=== PATIENT | female | born 1995 ===

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

== ENCOUNTER 2017-01-27 12:13 | Emergency (ER) | payer OTHER ==
[2017-01-27 12:14] VITALS: BMI 29.9
[2017-01-27 12:29] VITALS: BP 108/51; PULSE 81; RESP 16; TEMP 99.2; O2SAT 97
--- NOTE | 2017-01-27 12:43 | ED PDOC ---
Arrival/HPI - General Chief Complaint: Abnormal Skin Integrity Time Seen by Provider: 01/27/17 12:39 Historian: Patient - History of Present Illness Narrative History of Present Illness (Text): 01/27/17 12:40 This 21 yo female presents to this ED c/o "cold sore" x 2 days. Patient stated she has been applying Abreva without relief of symptoms. Patient denies other complains. Time/Duration: Prior to Arrival Context: Home Past Medical History - Provider Review Nursing Documentation Reviewed: Yes - Past History Past History: No Previous - Infectious Disease Hx of Infectious Diseases: None - Tetanus Immunization Tetanus Immunization: Unknown - Cardiac Hx Cardiac Disorders: No - Pulmonary Hx Respiratory Disorders: No - Neurological Hx Neurological Disorder: No - HEENT Hx HEENT Disorder: No - Renal Hx Renal Disorder: No - Endocrine/Metabolic Hx Endocrine Disorders: No - Hematological/Oncological Hx Blood Disorders: No - Integumentary Hx Dermatological Disorder: Yes - Musculoskeletal/Rheumatological Hx Musculoskeletal Disorders: No Hx Falls: No - Gastrointestinal Hx Gastrointestinal Disorders: No - Genitourinary/Gynecological Hx Genitourinary Disorders: No - Psychiatric Hx Psychophysiologic Disorder: No Hx Substance Use: No - Surgical History Hx Appendectomy: Yes - Anesthesia Hx Anesthesia: No Hx Anesthesia Reactions: No Hx Malignant Hyperthermia: No Family/Social History - Physician Review Nursing Documentation Reviewed: Yes Family/Social History: Other (noncontributory) Smoking Status: Never Smoked Hx Alcohol Use: No Hx Substance Use: No Allergies/Home Meds Allergies/Adverse Reactions: Allergies No Known Allergies Allergy (Verified 01/27/17 12:20) Review of Systems - Review of Systems Constitutional: Normal. absent: Fatigue, Weight Change, Fevers Eyes: Normal ENT: Normal Respiratory: Normal Cardiovascular: Normal Gastrointestinal: Normal Genitourinary Female: Normal Musculoskeletal: Normal Skin: Rash (cold sore with crusting) Neurological: Normal Endocrine: Normal Hemo/Lymphatic: Normal Psychiatric: Normal Physical Exam Vital Signs Temp Pulse Resp BP Pulse Ox 01/27/17 12:21 99.2 F 81 16 108/51 L 97 Temperature: Afebrile Blood Pressure: Normal Pulse: Regular Respiratory Rate: Normal Appearance: Positive for: Well-Appearing, Non-Toxic, Comfortable Pain Distress: None Mental Status: Positive for: Alert and Oriented X 3 - Systems Exam Head: Present: Atraumatic, Normocephalic Pupils: Present: PERRL Extroacular Muscles: Present: EOMI Conjunctiva: Present: Normal Mouth: Present: Moist Mucous Membranes, Normal Tounge, Normal Teeth. No: Drooling, Trismus, Normal Lips ((+) Vesicular rash extending from left upper lip in to philtrum area, with yellowish crustin, which may represent seconday infection) Pharnyx: Present: Normal. No: ERYTHEMA, EXUDATE, TONSILS ENLARGED Upper Extremity: Present: Normal Inspection, Normal ROM Lower Extremity: Present: Normal Inspection, Normal ROM Neurological: Present: GCS=15, CN II-XII Intact, Speech Normal, Motor Func Grossly Intact, Normal Sensory Function, Normal Cerebellar Funct, Gait Normal Skin: Present: Warm, Dry, Rashes (see head), Normal Color Medical Decision Making ED Course and Treatment: 01/27/17 12:47 Re-evaluation. Patient feels better. Discussed results and plan with patient who expresses understanding. All questions answered and there is agreement with the plan to discharge home with instructions. Patient stable for discharge. Return if symptoms persist or worsen. 01/27/17 12:52 Patient refused to have urine test since she is not sexually active, and she is currently with her menses Re-evaluation Time: 12:47 Reassessment Condition: Re-examined, Improved Disposition/Present on Arrival - Present on Arrival Any Indicators Present on Arrival: No History of DVT/PE: No History of Uncontrolled Diabetes: No Urinary Catheter: No History of Decub. Ulcer: No History Surgical Site Infection Following: None - Disposition Have Diagnosis and Disposition been Completed?: Yes Diagnosis: Herpes labialis Disposition: HOME/ ROUTINE Disposition Time: 12:47 Patient Plan: Discharge Patient Problems: Current Active Problems Problem Status Onset Herpes labialis Acute Condition: GOOD Discharge Instructions (ExitCare): Oral Herpes Simplex Virus Infections (ED) Additional Instructions: Call private doctor for follow up visit and revaluation in 1-2 days. Wash hand before and after applying cream on wound. Return to emergency if rash worsen. Prescriptions: Mupirocin 2% Ointment [Bactroban Ointment] 1 appl TP TID #1 tube Valacyclovir HCl [Valtrex] 2 gm PO Q12H #4 tablet
== END 2017-01-27 13:02 | disposition home or self-care (01) ==
LOC: ED 12:13
DX: B00.1 Herpesviral vesicular dermatitis (principal)

== ENCOUNTER 2017-04-26 23:21 | Emergency (ER) | payer OTHER ==
[2017-04-26 23:39] VITALS: BMI 31.6
[2017-04-27 01:20] VITALS: RESP 18
[2017-04-27] MEDS ORDERED: Sodium Chloride 0.9% 1,000 ML IV STA (01:59)
--- NOTE | 2017-04-27 02:05 | ED PDOC ---
Arrival/HPI - General Chief Complaint: Abdominal Pain Time Seen by Provider: 04/27/17 01:22 Historian: Patient - History of Present Illness Narrative History of Present Illness (Text): 04/27/17 01:56 A 22 year old female, whose past medical history includes appendectomy, presents to the emergency department for evaluation of abdominal discomfort that began this late evening. Patient reports no associated vomiting or diarrhea with discomfort. Patient denies urinary symptoms, back pain, vaginal discharge, trauma, or any other complaints. No PMD Time/Duration: Other (late this evening) Symptom Onset: Sudden Symptom Course: Unchanged Past Medical History - Provider Review Nursing Documentation Reviewed: Yes - Past History Past History: No Previous - Infectious Disease Hx of Infectious Diseases: None - Tetanus Immunization Tetanus Immunization: Unknown - Cardiac Hx Cardiac Disorders: No - Pulmonary Hx Respiratory Disorders: No - Neurological Hx Neurological Disorder: No - HEENT Hx HEENT Disorder: No - Renal Hx Renal Disorder: No - Endocrine/Metabolic Hx Endocrine Disorders: No - Hematological/Oncological Hx Blood Disorders: No - Integumentary Hx Dermatological Disorder: Yes - Musculoskeletal/Rheumatological Hx Musculoskeletal Disorders: No Hx Falls: No - Gastrointestinal Hx Gastrointestinal Disorders: No - Genitourinary/Gynecological Hx Genitourinary Disorders: No - Psychiatric Hx Psychophysiologic Disorder: No Hx Substance Use: No - Surgical History Hx Appendectomy: Yes - Anesthesia Hx Anesthesia: No Hx Anesthesia Reactions: No Hx Malignant Hyperthermia: No Family/Social History - Physician Review Nursing Documentation Reviewed: Yes Family/Social History: No Known Family HX Smoking Status: Never Smoked Hx Alcohol Use: No Hx Substance Use: No Allergies/Home Meds Allergies/Adverse Reactions: Allergies No Known Allergies Allergy (Verified 04/27/17 01:20) Review of Systems - Physician Review All systems were reviewed & negative as marked: Yes - Review of Systems Constitutional: absent: Other (no trauma) Gastrointestinal: Abdominal Pain (abdominal discomfort). absent: Nausea, Vomiting Genitourinary Female: absent: Dysuria, Frequency, Hematuria, Urine Output Changes, Vaginal Discharge Musculoskeletal: absent: Back Pain Physical Exam Vital Signs Reviewed: Yes Vital Signs Temp Pulse Resp BP Pulse Ox 04/27/17 01:17 98.6 F 84 18 114/74 98 Temperature: Afebrile Blood Pressure: Normal Pulse: Regular Respiratory Rate: Normal Appearance: Positive for: Well-Appearing Pain Distress: None Mental Status: Positive for: Alert and Oriented X 3 - Systems Exam Head: Present: Atraumatic, Normocephalic Pupils: Present: PERRL Extroacular Muscles: Present: EOMI Conjunctiva: Present: Normal Mouth: Present: Moist Mucous Membranes Neck: Present: Normal Range of Motion Respiratory/Chest: Present: Clear to Auscultation, Good Air Exchange. No: Respiratory Distress, Accessory Muscle Use Cardiovascular: Present: Regular Rate and Rhythm, Normal S1, S2. No: Murmurs Abdomen: Present: Normal Bowel Sounds. No: Tenderness, Distention, Peritoneal Signs Back: Present: Normal Inspection Upper Extremity: Present: Normal Inspection. No: Cyanosis, Edema Lower Extremity: Present: Normal Inspection. No: Edema Neurological: Present: GCS=15, CN II-XII Intact, Speech Normal Skin: Present: Warm, Dry, Normal Color. No: Rashes Psychiatric: Present: Alert, Oriented x 3, Normal Insight, Normal Concentration Medical Decision Making ED Course and Treatment: 04/27/17 01:58 Impression: 22 year old female with abdominal discomfort. Physical exam is benign. Plan: -- Labs -- Urinalysis -- IV Fluids -- Reassess and disposition Prior Visits: Notes and results from previous visits were reviewed. Patient was last seen in the emergency department on 01/27/2017 for "cold sore." Patient was d/c home. Progress Notes: - Lab Interpretations Lab Results: 04/27/17 02:09 04/27/17 02:09 Lab Results 04/27/17 02:09: WBC 10.1 D, RBC 4.81, Hgb 12.6, Hct 39.0, MCV 81.1, MCH 26.2, MCHC 32.3, RDW 16.2 H, Plt Count 412, MPV 10.1 04/27/17 02:09: Sodium 141, Potassium 4.1, Chloride 107, Carbon Dioxide 22, Anion Gap 17, BUN 12, Creatinine 0.7, Est GFR ( Amer) > 60, Est GFR (Non- Af Amer) > 60, Random Glucose 87, Calcium 9.6, Total Bilirubin 0.3, AST 37 H, ALT 42, Alkaline Phosphatase 91, Total Protein 8.0, Albumin 4.4, Globulin 3.6, Albumin/Globulin Ratio 1.2, Lipase 66 04/27/17 02:01: Urine Color Straw, Urine Appearance Clear, Urine pH 7.5, Ur Specific [place] 1.010, Urine Protein Negative, Urine Glucose (UA) Negative, Urine Ketones Negative, Urine Blood Negative, Urine Nitrate Negative, Urine Bilirubin Negative, Urine Urobilinogen 0.2, Ur Leukocyte Esterase Negative, Urine HCG, Qual Negative I have reviewed the lab results: Yes - RAD Interpretation Radiology Orders: 04/27/17 06:19 ABD & PELVIS IV CONTRAST ONLY [CT] Stat - Medication Orders Current Medication Orders: Discontinued Medications Sodium Chloride (Sodium Chloride 0.9%) 1,000 mls @ 999 mls/hr IV .Q1H1M STA Stop: 04/27/17 02:59 Last Admin: 04/27/17 02:12 Dose: 999 mls/hr eMAR Start Stop Document 04/27/17 02:12 AD (Rec: 04/27/17 02:12 AD [id number]) Intravenous Solution Start Date 04/27/17 Start Time 02:12 Ketorolac Tromethamine (Toradol) 30 mg IVP ONCE ONE Stop: 04/27/17 05:22 Last Admin: 04/27/17 05:30 Dose: 30 mg MAR Pain Assessment Document 04/27/17 05:30 AD (Rec: 04/27/17 05:55 AD [id number]) Pain Reassessment Is this a pain reassessment? No Presence of Pain Presence of Pain Yes Pain Scale Used Pain Scale Used Numeric Description Intensity of Pain at present 8 Pain Behavior Facial Grimacing IVP Administration Document 04/27/17 05:30 AD (Rec: 04/27/17 05:55 AD [id number]) Charges for Administration # of IVP Administrations 1 Morphine Sulfate (Morphine) 4 mg IVP STAT STA Stop: 04/27/17 06:20 Ondansetron HCl (Zofran Inj) 4 mg IVP ONCE ONE Stop: 04/27/17 06:20 - Transfer of Care Patient signed out to :Sarah Khan Pending Radiology Studies:: CT Abdomen/Pelvis/reassess/final disposition - Scribe Statement The provider has reviewed the documentation as recorded by the Jose Stanley Provider Scribe Attestation: All medical record entries made by the Scribe were at my direction and personally dictated by me. I have reviewed the chart and agree that the record accurately reflects my personal performance of the history, physical exam, medical decision making, and the department course for this patient. I have also personally directed, reviewed, and agree with the discharge instructions and disposition. Disposition/Present on Arrival - Present on Arrival Any Indicators Present on Arrival: No History of DVT/PE: No History of Uncontrolled Diabetes: No Urinary Catheter: No History of Decub. Ulcer: No History Surgical Site Infection Following: None - Disposition Have Diagnosis and Disposition been Completed?: No Diagnosis: Abdominal pain Disposition Time: 07:00 Condition: STABLE Forms: [employer] (Persian)
[2017-04-27 02:42] LABS: PH,URINE 7.5 (4.7-8.0); URINE BILIRUBIN NEGATIVE (NEGATIVE); URINE BLOOD NEGATIVE (NEGATIVE); URINE GLUCOSE (UA) NEGATIVE (NEGATIVE); URINE LEUKOCYTE ESTERASE NEGATIVE Leu/uL (NEGATIVE); URINE NITRATE NEGATIVE (NEGATIVE); URINE PROTEIN NEGATIVE mg/dL (<30 mg/dL); URINE UROBILINOGEN 0.2 E.U./dL (<1 E.U./dL)
[2017-04-27 02:43] LABS: HEMOGLOBIN 12.6 g/dL (12.0-16.0); MEAN CELL VOLUME 81.1 fl (80.0-105.0); MEAN CORPUSCULAR HEMOGLOBIN 26.2 pg (25.0-35.0); MEAN CORPUSCULAR HGB CONC 32.3 g/dl (31.0-37.0); MEAN PLATELET VOLUME 10.1 fl (7.0-11.0); RBC 4.81 10^6/uL (3.5-6.1); RED CELL DISTRIBUTION WIDTH 16.2 % (11.5-14.5); WHITE BLOOD COUNT 10.1 10^3/ul (4.5-11.0)
[2017-04-27 02:45] LABS: URINE APPEARANCE CLEAR (CLEAR); URINE COLOR STRAW (YELLOW)
[2017-04-27 02:46] LABS: ALB/GLOB RATIO 1.2 (1.1-1.8); ALBUMIN 4.4 g/dL (3.0-4.8); ALT/SGPT 42 U/L (7-56); AST/SGOT 37 U/L (14-36); BLOOD UREA NITROGEN 12 mg/dL (7-21); CALCIUM 9.6 mg/dL (8.4-10.5); GFR AFRICAN-AMERICAN > 60; GFR NON-AFRICAN AMERICAN > 60; LIPASE 66 U/L (23-300)
[2017-04-27 02:46] LABS: HCG,QUALITATIVE URINE NEGATIVE (NEGATIVE)
[2017-04-27] MEDS ORDERED: Morphine 4 mg/ml ISec IVP STA (06:19)
[2017-04-27] MEDS ORDERED: Iohexol 350 MG/100 ML VIAL ONE (06:35)
--- NOTE | 2017-04-27 07:29 | ED PDOC ---
Physical Exam Vital Signs Reviewed: Yes Vital Signs Temp Pulse Resp BP Pulse Ox 04/27/17 07:38 98 F 76 18 102/56 L 99 04/27/17 01:17 98.6 F 84 18 114/74 98 Temperature: Afebrile Blood Pressure: Normal Pulse: Regular Respiratory Rate: Normal Appearance: Positive for: Well-Appearing, Non-Toxic, Comfortable Pain Distress: None Mental Status: Positive for: Alert and Oriented X 3 Medical Decision Making ED Course and Treatment: 04/27/17 07:28 Case signed out to me by Dr. Ulrich. Pending CT abd/pelvis, reassessment and final disposition. CT Abdomen and Pelvis With Intravenous Contrast FINDINGS: Lower thorax: No acute findings. ABDOMEN: Liver: Dome of the liver is not entirely visualized Gallbladder and bile ducts: Unremarkable. No calcified stones. No ductal dilation. Pancreas: Unremarkable. No mass. No ductal dilation. Spleen: Unremarkable. No splenomegaly. Adrenals: Unremarkable. No mass. Kidneys and ureters: Unremarkable. No solid mass. No hydronephrosis. Stomach and bowel: Small bowel wall thickening may reflect a nonspecific enteritis, either infectious or inflammatory, in the correct clinical setting. No obstruction. Appendix: The patient is status post appendectomy. PELVIS: Bladder: Unremarkable. No mass. Reproductive: Bilateral ovarian follicular cysts ABDOMEN and PELVIS: Intraperitoneal space: Unremarkable. No free air. No significant fluid collection. Bones/joints: No acute fracture. No dislocation. Soft tissues: Unremarkable. Vasculature: Unremarkable. No abdominal aortic aneurysm. Lymph nodes: Unremarkable. No enlarged lymph nodes. IMPRESSION: Small bowel wall thickening may reflect a nonspecific enteritis, either infectious or inflammatory, in the correct clinical setting. Dictated and Authenticated by: Jamel Gaitan MD 04/27/2017 7:20 AM Eastern Time ([place] & [place]) 04/27/17 07:37 On reevaluation, abdomen is soft, patient feels better and is in no acute distress. Will give patient IV antibiotics. I have discussed the results and plan with the patient, who expresses understanding. Patient in agreement with plan to be discharged home. Patient is stable for discharge. Patient was instructed to follow up with physician or return if symptoms worsen or new concerning symptoms arise. - Lab Interpretations Lab Results: 04/27/17 02:09 04/27/17 02:09 Lab Results 04/27/17 02:09: WBC 10.1 D, RBC 4.81, Hgb 12.6, Hct 39.0, MCV 81.1, MCH 26.2, MCHC 32.3, RDW 16.2 H, Plt Count 412, MPV 10.1 04/27/17 02:09: Sodium 141, Potassium 4.1, Chloride 107, Carbon Dioxide 22, Anion Gap 17, BUN 12, Creatinine 0.7, Est GFR ( Amer) > 60, Est GFR (Non- Af Amer) > 60, Random Glucose 87, Calcium 9.6, Total Bilirubin 0.3, AST 37 H, ALT 42, Alkaline Phosphatase 91, Total Protein 8.0, Albumin 4.4, Globulin 3.6, Albumin/Globulin Ratio 1.2, Lipase 66 04/27/17 02:01: Urine Color Straw, Urine Appearance Clear, Urine pH 7.5, Ur Specific [place] 1.010, Urine Protein Negative, Urine Glucose (UA) Negative, Urine Ketones Negative, Urine Blood Negative, Urine Nitrate Negative, Urine Bilirubin Negative, Urine Urobilinogen 0.2, Ur Leukocyte Esterase Negative, Urine HCG, Qual Negative I have reviewed the lab results: Yes - RAD Interpretation Radiology Orders: 04/27/17 06:19 ABD & PELVIS IV CONTRAST ONLY [CT] Stat - Medication Orders Current Medication Orders: Metronidazole (Flagyl) 500 mg in 100 mls @ 100 mls/hr IVPB STAT STA PRN Reason: Protocol Stop: 04/27/17 08:30 Levofloxacin/Dextrose (Levaquin 750mg) 750 mg in 150 mls @ 100 mls/hr IVPB STAT STA PRN Reason: Protocol Stop: 04/27/17 09:00 Discontinued Medications Sodium Chloride (Sodium Chloride 0.9%) 1,000 mls @ 999 mls/hr IV .Q1H1M STA Stop: 04/27/17 02:59 Last Admin: 04/27/17 02:12 Dose: 999 mls/hr eMAR Start Stop Document 04/27/17 02:12 AD (Rec: 04/27/17 02:12 AD [id number]) Intravenous Solution Start Date 04/27/17 Start Time 02:12 Ketorolac Tromethamine (Toradol) 30 mg IVP ONCE ONE Stop: 04/27/17 05:22 Last Admin: 04/27/17 05:30 Dose: 30 mg MAR Pain Assessment Document 04/27/17 05:30 AD (Rec: 04/27/17 05:55 AD [id number]) Pain Reassessment Is this a pain reassessment? No Presence of Pain Presence of Pain Yes Pain Scale Used Pain Scale Used Numeric Description Intensity of Pain at present 8 Pain Behavior Facial Grimacing IVP Administration Document 04/27/17 05:30 AD (Rec: 04/27/17 05:55 AD [id number]) Charges for Administration # of IVP Administrations 1 Morphine Sulfate (Morphine) 4 mg IVP STAT STA Stop: 04/27/17 06:20 Last Admin: 04/27/17 06:30 Dose: 4 mg MAR Pain Assessment Document 04/27/17 06:30 AD (Rec: 04/27/17 07:01 [id number] Pain Reassessment Is this a pain reassessment? No Presence of Pain Presence of Pain Yes Pain Scale Used Pain Scale Used Numeric Location Pain Location Body Site Abdomen Description Intensity of Pain at present 7 Pain Behavior Facial Grimacing IVP Administration Document 04/27/17 06:30 AD (Rec: 04/27/17 07:01 AD [id number]) Charges for Administration # of IVP Administrations 1 Ondansetron HCl (Zofran Inj) 4 mg IVP ONCE ONE Stop: 04/27/17 06:20 Last Admin: 04/27/17 06:30 Dose: 4 mg IVP Administration Document 04/27/17 06:30 AD (Rec: 04/27/17 07:02 [id number] Charges for Administration # of IVP Administrations 1 - PA / SECURITY CHECKER / Resident Statement MD/DO has reviewed & agrees with the documentation as recorded. - Scribe Statement The provider has reviewed the documentation as recorded by the Jose Asif Provider Scribe Attestation: All medical record entries made by the Jose were at my direction and personally dictated by me. I have reviewed the chart and agree that the record accurately reflects my personal performance of the history, physical exam, medical decision making, and the department course for this patient. I have also personally directed, reviewed, and agree with the discharge instructions and disposition. Disposition/Present on Arrival - Present on Arrival Any Indicators Present on Arrival: No History of DVT/PE: No History of Uncontrolled Diabetes: No Urinary Catheter: No History of Decub. Ulcer: No History Surgical Site Infection Following: None - Disposition Have Diagnosis and Disposition been Completed?: Yes Diagnosis: Abdominal pain, Colitis Disposition: HOME/ ROUTINE Disposition Time: 07:49 Patient Plan: Discharge Patient Problems: Current Active Problems Problem Status Onset Abdominal pain Acute Colitis Acute Condition: GOOD Discharge Instructions (ExitCare): Diarrhea in Adolescents and Adults, Nausea and Vomiting, Adult (DC) Additional Instructions: Rain- Sorry this is happening for you right now. Clear Liquids or a bland diet should be ok. Levaquin and Flagyl are the antibiotics. You have to take both for ten days. Eat lots of yogurt if possible or take a probiotic. See your doctor in a few days. Return to us if worse or new symptoms occur. Hope you feel better soon- Best-Dr. Brown Khan Prescriptions: Ibuprofen [Motrin Tab] 800 mg PO TID #30 tab levoFLOXacin [Levaquin] 750 mg PO DAILY #10 tab Metronidazole [Flagyl] 500 mg PO TID #30 tab Ondansetron ODT [Zofran ODT] 8 mg PO TID #30 odt oxyCODONE/Acetaminophen [Percocet 5/325 mg Tab] 1 tab PO QID #20 tab Forms: [employer] (Japanese)
[2017-04-27] MEDS ORDERED: metroNIDAZOLE IV 500 mg/100 ml 500 MG/100 ML BAG IVPB STA (07:31)
[2017-04-27] MEDS ORDERED: levoFLOXacin 750 mg in D5W 750 MG/150 ML BAG IVPB STA (07:31)
[2017-04-27 07:39] VITALS: TEMP 98
--- NOTE | 2017-04-27 10:03 | CT ---
PROCEDURE: CT Abdomen and Pelvis with contrast HISTORY: lower abdominal pain COMPARISON: None. TECHNIQUE: Contrast dose: 100 mL Omnipaque 350. Axial and reformatted coronal and sagittal CT images of the abdomen and pelvis were obtained after IV contrast administration. Radiation dose: Total exam DLP = 912.85 mGy-cm. This CT exam was performed using one or more of the following dose reduction techniques: Automated exposure control, adjustment of the mA and/or kV according to patient size, and/or use of iterative reconstruction technique. FINDINGS: LOWER THORAX: No evidence of acute pathology at the lung bases. LIVER: Unremarkable. No gross lesion or ductal dilatation. GALLBLADDER AND BILE DUCTS: Unremarkable. PANCREAS: Unremarkable. No gross lesion or ductal dilatation. SPLEEN: Unremarkable. ADRENALS: Unremarkable. No mass. KIDNEYS AND URETERS: Unremarkable. No hydronephrosis. No solid mass. VASCULATURE: Unremarkable. No aortic aneurysm. BOWEL: There is suspicious for mild diffuse small bowel wall thickening which could represent enteritis. No evidence of bowel obstruction. No evidence of colitis. APPENDIX: No evidence of appendicitis. The appendix is not visualized. PERITONEUM: Unremarkable. No free fluid. No free air. LYMPH NODES: Slightly prominent mesenteric lymph nodes are noted in the right lower abdomen may represent mesenteric adenitis in appropriate clinical setting. No evidence of retroperitoneal lymphadenopathy P BLADDER: Unremarkable. REPRODUCTIVE: Unremarkable. BONES: No acute fracture. OTHER FINDINGS: None. IMPRESSION: Diffuse mild small bowel wall thickening suspicious for enteritis. Prominent lymph nodes at the right lower abdomen adjacent to the cecum and ascending colon may represent mesenteric adenitis in the appropriate clinical setting. Preliminary report was submitted by [facility].
[2017-04-27 10:44] VITALS: PULSE 80; O2SAT 98
[2017-04-27 10:53] VITALS: BP 105/66
== END 2017-04-27 10:54 | disposition home or self-care (01) ==
LOC: ED 23:21
DX: K52.9 Noninfective gastroenteritis and colitis, unspecified (principal)
CPT/HCPCS: 74177; 80053; 81003; 83690; 84703; 85027; 96365; 96367; 96375; 99285; J1885; J2270; J2405; J7040; Q9967

== ENCOUNTER 2017-06-10 15:18 | Emergency (ER) | payer OTHER ==
[2017-06-10 15:28] VITALS: RESP 18; TEMP 98; O2SAT 97; BMI 31.8
--- NOTE | 2017-06-10 15:28 | ED PDOC ---
Arrival/HPI - General Time Seen by Provider: 06/10/17 15:27 Historian: Patient - History of Present Illness Narrative History of Present Illness (Text): 06/10/17 15:27 22 year old female, pmh including appendicitis and uti, nkda, complaining of rt. hand 5th knuckle pain s/p crushing by the balcony door x 2 hours accidentally. Aching pain, aggravated by touching, no numbness or tingling, no rash, no dizziness, no palpitation, no change in vision, no other medical or psychological complaints. Past Medical History - Provider Review Nursing Documentation Reviewed: Yes - Past History Past History: No Previous - Infectious Disease Hx of Infectious Diseases: None - Tetanus Immunization Tetanus Immunization: Unknown - Cardiac Hx Cardiac Disorders: No - Pulmonary Hx Respiratory Disorders: No - Neurological Hx Neurological Disorder: No - HEENT Hx HEENT Disorder: No - Renal Hx Renal Disorder: No - Endocrine/Metabolic Hx Endocrine Disorders: No - Hematological/Oncological Hx Blood Disorders: No - Integumentary Hx Dermatological Disorder: Yes - Musculoskeletal/Rheumatological Hx Musculoskeletal Disorders: No Hx Falls: No - Gastrointestinal Hx Gastrointestinal Disorders: No - Genitourinary/Gynecological Hx Genitourinary Disorders: No - Psychiatric Hx Psychophysiologic Disorder: No Hx Substance Use: No - Surgical History Hx Appendectomy: Yes - Anesthesia Hx Anesthesia: No Hx Anesthesia Reactions: No Hx Malignant Hyperthermia: No Family/Social History - Physician Review Nursing Documentation Reviewed: Yes Family/Social History: Unknown Family HX Smoking Status: Never Smoked Hx Alcohol Use: No Hx Substance Use: No Allergies/Home Meds Allergies/Adverse Reactions: Allergies No Known Allergies Allergy (Verified 06/10/17 15:39) Review of Systems - Review of Systems Constitutional: absent: Fatigue, Fevers Eyes: absent: Vision Changes ENT: absent: Hearing Changes Respiratory: absent: SOB, Cough Cardiovascular: absent: Chest Pain Gastrointestinal: absent: Abdominal Pain, Nausea, Vomiting Musculoskeletal: Arthralgias, Myalgias. absent: Back Pain Skin: absent: Rash, Pruritis Neurological: absent: Headache, Dizziness Psychiatric: absent: Anxiety, Depression, Suicidal Ideation Physical Exam Vital Signs Reviewed: Yes Vital Signs Temp Pulse Resp BP Pulse Ox 06/10/17 16:30 79 18 118/79 97 06/10/17 15:26 98.0 F 83 18 121/82 97 Temperature: Afebrile Blood Pressure: Normal Pulse: Regular Respiratory Rate: Normal Appearance: Positive for: Well-Appearing, Non-Toxic, Comfortable Pain Distress: Mild Mental Status: Positive for: Alert and Oriented X 3 - Systems Exam Head: Present: Atraumatic, Normocephalic Pupils: Present: PERRL Extroacular Muscles: Present: EOMI Conjunctiva: Present: Normal Mouth: Present: Moist Mucous Membranes Neck: Present: Normal Range of Motion Respiratory/Chest: Present: Clear to Auscultation, Good Air Exchange. No: Respiratory Distress, Accessory Muscle Use Cardiovascular: Present: Regular Rate and Rhythm, Normal S1, S2. No: Murmurs Abdomen: No: Tenderness, Distention, Peritoneal Signs Back: Present: Normal Inspection Upper Extremity: Present: Normal Inspection, Other (Rt. hand: +ttp over the dorsum 5th MCPJ region with mild ecchymosis, skin intact, no laceration or abrasion, FROM without limitation, sensation intact, motor 5/5, +radial pulse, capillary refill< 2seconds, no scaphoid tenderness, no skin tightening and no signs of compartment syndrome. ). No: Cyanosis, Edema Lower Extremity: Present: Normal Inspection. No: Edema Neurological: Present: GCS=15, CN II-XII Intact, Speech Normal, Motor Func Grossly Intact, Gait Normal, Memory Normal Skin: Present: Warm, Dry, Normal Color. No: Rashes Psychiatric: Present: Alert, Oriented x 3, Normal Insight, Normal Concentration Medical Decision Making ED Course and Treatment: 06/10/17 15:38 -tylenol -rt. hand xray -observe and reassess 06/10/17 16:46 -urine hcg is negative -xray show no acute findings -Discharge home with naproxen, ice pack for 2 days then heating, follow up with your own pmd and orthopedic within 2 days, return to the ER for any new or worsening signs or symptoms. - RAD Interpretation Radiology Orders: 06/10/17 15:31 HAND RIGHT 3 VIEWS [RAD] Stat PROCEDURE: Right Hand Radiographs. HISTORY: rt. hand dorsum 5th mcpj pain and swelling COMPARISON: None. FINDINGS: BONES: Normal. No fracture. JOINTS: Normal. No osteoarthritic changes. SOFT TISSUES: Normal. OTHER FINDINGS: None. IMPRESSION: Normal right hand radiographs. Information Technology Security Analyst: Radiologist - PA / FRANCHISE BROKER / Resident Statement MD/DO has reviewed & agrees with the documentation as recorded. Disposition/Present on Arrival - Present on Arrival Any Indicators Present on Arrival: No History of DVT/PE: No History of Uncontrolled Diabetes: No Urinary Catheter: No History of Decub. Ulcer: No History Surgical Site Infection Following: None - Disposition Have Diagnosis and Disposition been Completed?: Yes Diagnosis: Hand injury, Hand contusion Disposition: HOME/ ROUTINE Disposition Time: 15:39 Patient Plan: Discharge Condition: GOOD Additional Instructions: -Discharge home with naproxen, ice pack for 2 days then heating, follow up with your own pmd and orthopedic within 2 days, return to the ER for any new or worsening signs or symptoms. Prescriptions: Naproxen 500 mg PO BID PRN #20 tab PRN Reason: other Referrals: Shaik Martinez MD [Primary Care Provider] - Follow up with primary Prateek Miller MD [Staff Provider] - Follow up with primary Forms: [employer] (Wolof)
[2017-06-10 16:53] VITALS: BP 118/79; PULSE 79
--- NOTE | 2017-06-11 08:57 | RAD ---
PROCEDURE: Right Hand Radiographs. HISTORY: rt. hand dorsum 5th mcpj pain and swelling COMPARISON: None. FINDINGS: BONES: Normal. No fracture. JOINTS: Normal. No osteoarthritic changes. SOFT TISSUES: Normal. OTHER FINDINGS: None. IMPRESSION: Normal right hand radiographs.
== END 2017-06-10 16:56 | disposition home or self-care (01) ==
LOC: ED 15:18
DX: S60.221A Contusion of right hand, initial encounter (principal); W23.0XXA Caught, crushed, jammed, or pinched between moving objects, initial encounter; Y92.89 Other specified places as the place of occurrence of the external cause

== ENCOUNTER 2017-08-04 01:06 | Emergency (ER) | payer SELFPAY ==
[2017-08-04 01:06] VITALS: BMI 31.8
--- NOTE | 2017-08-04 02:17 | ED PDOC ---
Arrival/HPI <Brown Khan - Last Filed: 08/04/17 03:35> - General Historian: Patient - History of Present Illness Time/Duration: Prior to Arrival Symptom Onset: Gradual Symptom Course: Unchanged Activities at Onset: Rest Context: Home <Armaan Soto - Last Filed: 08/04/17 03:39> - General Chief Complaint: Cough, Cold, Congestion Time Seen by Provider: 08/04/17 01:14 - History of Present Illness Narrative History of Present Illness (Text): 08/04/17 03:18 Patient is a 22 F who presents with complaints of headache, chest congestion, sore throat, and productive cough with white sputum. Patient states these symptoms began when she woke up yesterday morning. She denies fevers,chills, nausea, vomiting, abdominal pain. (Armaan Soto) Past Medical History - Provider Review Nursing Documentation Reviewed: Yes - Past History Past History: No Previous - Infectious Disease Hx of Infectious Diseases: None - Tetanus Immunization Tetanus Immunization: Unknown - Reproductive Menopause: No - Cardiac Hx Cardiac Disorders: No - Pulmonary Hx Respiratory Disorders: No - Neurological Hx Neurological Disorder: No - HEENT Hx HEENT Disorder: No - Renal Hx Renal Disorder: No - Endocrine/Metabolic Hx Endocrine Disorders: No - Hematological/Oncological Hx Blood Disorders: No - Integumentary Hx Dermatological Disorder: Yes - Musculoskeletal/Rheumatological Hx Musculoskeletal Disorders: No Hx Falls: No - Gastrointestinal Hx Gastrointestinal Disorders: No - Genitourinary/Gynecological Hx Genitourinary Disorders: No - Psychiatric Hx Psychophysiologic Disorder: No Hx Substance Use: No - Surgical History Hx Appendectomy: Yes - Anesthesia Hx Anesthesia: No Hx Anesthesia Reactions: No Hx Malignant Hyperthermia: No <Armaan Soto - Last Filed: 08/04/17 03:39> Family/Social History - Physician Review Nursing Documentation Reviewed: Yes Family/Social History: Other (non-contributory) Smoking Status: Never Smoked Hx Alcohol Use: No Hx Substance Use: No <Armaan Soto - Last Filed: 08/04/17 03:39> Allergies/Home Meds <Brown Khan - Last Filed: 08/04/17 03:35> <Armaan Soto - Last Filed: 08/04/17 03:39> Allergies/Adverse Reactions: Allergies No Known Allergies Allergy (Verified 06/10/17 15:39) Review of Systems - Physician Review All systems were reviewed & negative as marked: Yes - Review of Systems Constitutional: Normal. absent: Fevers Eyes: Normal ENT: Normal Respiratory: Cough, Sputum. absent: SOB Cardiovascular: Normal. absent: Chest Pain Gastrointestinal: Normal. absent: Abdominal Pain, Diarrhea, Nausea, Vomiting Genitourinary Female: Normal Musculoskeletal: Normal Skin: Normal Neurological: Headache Endocrine: Normal Hemo/Lymphatic: Normal Psychiatric: Normal <Armaan Soto - Last Filed: 08/04/17 03:39> Physical Exam Vital Signs Reviewed: Yes Temperature: Afebrile Blood Pressure: Normal Pulse: Regular Respiratory Rate: Normal Appearance: Positive for: Well-Appearing, Non-Toxic, Comfortable Pain Distress: None Mental Status: Positive for: Alert and Oriented X 3 - Systems Exam Head: Present: Atraumatic, Normocephalic Pupils: Present: PERRL Extroacular Muscles: Present: EOMI Conjunctiva: Present: Normal Mouth: Present: Moist Mucous Membranes Neck: Present: Normal Range of Motion Respiratory/Chest: Present: Clear to Auscultation. No: Wheezes, Rhonchi Cardiovascular: Present: Regular Rate and Rhythm, Normal S1, S2. No: Murmurs Abdomen: Present: Normal Bowel Sounds. No: Tenderness Upper Extremity: Present: Normal Inspection. No: Edema Lower Extremity: Present: Normal Inspection Neurological: Present: GCS=15, CN II-XII Intact, Speech Normal Skin: Present: Warm, Normal Color Psychiatric: Present: Alert, Oriented x 3, Normal Insight <Armaan Soto - Last Filed: 08/04/17 03:39> Vital Signs Temp Pulse Resp BP Pulse Ox 08/04/17 02:55 99.0 F 88 18 132/76 100 08/04/17 01:19 99.8 F H 101 H 20 133/56 L 99 Medical Decision Making <Brown Khan - Last Filed: 08/04/17 03:35> Reassessment Condition: Re-examined, Improved <Armaan Soto - Last Filed: 08/04/17 03:39> ED Course and Treatment: Patient Seen With Resident: In agreement with resident note which contains more details about the patient. Patient was seen and evaluated with resident. Came up with plan and treatment together. 22 year old female presents complaining of chest congestion, sore throat, cough with white sputum, and headache that began yesterday. Plan: -- Amoxil -- Motrin (Brown Khan) 08/04/17 03:15 Patient has pharyngitis, will discharge patient with amoxicillin and motrin for headache. (Armaan Soto) - Medication Orders Current Medication Orders: Discontinued Medications Amoxicillin (Amoxil 250 Mg Cap) 250 mg PO STAT STA PRN Reason: Protocol Stop: 08/04/17 02:12 Last Admin: 08/04/17 02:23 Dose: 250 mg Ibuprofen (Motrin Tab) 600 mg PO STAT STA Stop: 08/04/17 02:12 Last Admin: 08/04/17 02:22 Dose: 600 mg - Scribe Statement The provider has reviewed the documentation as recorded by the Scribe <Brown Khan - Last Filed: 08/04/17 03:35> <Armaan Soto - Last Filed: 08/04/17 03:39> - Scribe Statement Wisam Wynne Provider Scribe Attestation: All medical record entries made by the Scribe were at my direction and personally dictated by me. I have reviewed the chart and agree that the record accurately reflects my personal performance of the history, physical exam, medical decision making, and the department course for this patient. I have also personally directed, reviewed, and agree with the discharge instructions and disposition. (Brown Khan) Disposition/Present on Arrival <Brown Khan - Last Filed: 08/04/17 03:35> - Present on Arrival Any Indicators Present on Arrival: No History of DVT/PE: No History of Uncontrolled Diabetes: No Urinary Catheter: No History of Decub. Ulcer: No History Surgical Site Infection Following: None - Disposition Have Diagnosis and Disposition been Completed?: Yes Disposition Time: 02:46 Patient Plan: Discharge <Armaan Soto - Last Filed: 08/04/17 03:39> - Disposition Diagnosis: Pharyngitis Disposition: HOME/ ROUTINE Condition: GOOD Discharge Instructions (ExitCare): Bacterial Upper Respiratory Infection, Adult (DC), Viral Pharyngitis (DC) Additional Instructions: Ms. Monaco, thank you for letting us take care of you today. You were treated for your pharyngitis. The emergency medical care you received today was directed at your acute symptoms. If you were prescribed any medication, please fill it and take as directed. It may take several days for your symptoms to resolve. Return to the Emergency Department if your symptoms worsen, do not improve, or if you have any other problems. Please contact your doctor or call one of the physicians/clinics you have been referred to that are listed on the Patient Visit Information form that is included in your discharge packet. Bring any paperwork you were given at discharge with you along with any medications you are taking to your follow up visit. Our treatment cannot replace ongoing medical care by a primary care provider (PCP) outside of the emergency department. Thank you for allowing the [facility] team to be part of your care today. If you had an X-Ray or CT scan: A Radiologist will review the ED reading if any change in treatment is needed we will contact you. If you had a blood, urine, or wound culture: It will take several days for the results, if any change in treatment is needed we will contact you. If you had an STI test: It will take 48 hours for the results. Please call after 1 week if you have not heard back. Prescriptions: Amoxicillin [Amoxil 500 mg Cap] 500 mg PO BID #20 cap Ibuprofen [Motrin] 600 mg PO Q6H #20 tab Forms: [employer] (Lithuanian)
[2017-08-04 03:00] VITALS: BP 132/76; PULSE 88; RESP 18; TEMP 99; O2SAT 100
--- NOTE | 2017-08-04 23:45 | CARD ---
APPROVED REPORT EKG Measurement Heart [id number] <Conclusion> Normal sinus rhythm Biatrial enlargement Abnormal ECG
== END 2017-08-04 02:55 | disposition home or self-care (01) ==
LOC: ED 01:06
DX: J02.9 Acute pharyngitis, unspecified (principal)

== ENCOUNTER 2017-08-05 15:01 | Emergency (ER) | payer OTHER ==
[2017-08-05 15:02] VITALS: BMI 31.8
[2017-08-05 15:17] VITALS: TEMP 99.6; O2SAT 97
--- NOTE | 2017-08-05 15:43 | ED PDOC ---
Arrival/HPI - General Chief Complaint: ENT Problem Time Seen by Provider: 08/05/17 15:36 Historian: Patient - History of Present Illness Narrative History of Present Illness (Text): 08/05/17 15:43 22 y/o female, nkda, c/o throat pain x 3 days with no fall or trauma. Aching pain, aggravated by swallowing, no coughing, no fever or chills, no night sweat , no numbness or tingling, no difficulty swallowing, no chest pain or shortness of breath. Past Medical History - Provider Review Nursing Documentation Reviewed: Yes - Past History Past History: No Previous - Infectious Disease Hx of Infectious Diseases: None - Tetanus Immunization Tetanus Immunization: Unknown - Cardiac Hx Cardiac Disorders: No - Pulmonary Hx Respiratory Disorders: No - Neurological Hx Neurological Disorder: No - HEENT Hx HEENT Disorder: No - Renal Hx Renal Disorder: No - Endocrine/Metabolic Hx Endocrine Disorders: No - Hematological/Oncological Hx Blood Disorders: No - Integumentary Hx Dermatological Disorder: Yes - Musculoskeletal/Rheumatological Hx Musculoskeletal Disorders: No Hx Falls: No - Gastrointestinal Hx Gastrointestinal Disorders: No - Genitourinary/Gynecological Hx Genitourinary Disorders: No - Psychiatric Hx Psychophysiologic Disorder: No Hx Substance Use: No - Surgical History Hx Appendectomy: Yes - Anesthesia Hx Anesthesia: No Hx Anesthesia Reactions: No Hx Malignant Hyperthermia: No Family/Social History - Physician Review Nursing Documentation Reviewed: Yes Family/Social History: Unknown Family HX Smoking Status: Never Smoked Hx Alcohol Use: No Hx Substance Use: No Allergies/Home Meds Allergies/Adverse Reactions: Allergies No Known Allergies Allergy (Verified 08/05/17 15:05) Review of Systems - Review of Systems Constitutional: Fevers. absent: Fatigue Eyes: absent: Vision Changes ENT: Sore Throat. absent: Hearing Changes, Rhinorrhea Respiratory: absent: SOB, Cough, Sputum Cardiovascular: absent: Chest Pain Gastrointestinal: absent: Abdominal Pain, Nausea, Vomiting Musculoskeletal: absent: Arthralgias, Back Pain Skin: absent: Rash, Pruritis Neurological: absent: Headache, Dizziness Psychiatric: absent: Anxiety, Depression, Suicidal Ideation Physical Exam Vital Signs Reviewed: Yes Vital Signs Temp Pulse Resp BP Pulse Ox 08/05/17 15:05 99.6 F 117 H 17 118/76 97 Temperature: Afebrile Blood Pressure: Normal Pulse: Regular Respiratory Rate: Normal Appearance: Positive for: Well-Appearing, Non-Toxic, Comfortable Pain Distress: Mild Mental Status: Positive for: Alert and Oriented X 3 - Systems Exam Head: Present: Atraumatic, Normocephalic Pupils: Present: PERRL Extroacular Muscles: Present: EOMI Conjunctiva: Present: Normal Ears: Present: NORMAL TM, Normal Canal. No: Erythema Mouth: Present: Moist Mucous Membranes Pharnyx: Present: ERYTHEMA. No: EXUDATE, TONSILS ENLARGED, Peritonsilar Swelling, Uvular Deviation, Muffled/Hoarse Voice, Soft Palate/Uvular Edema Nose (External): Present: Atraumatic. No: Abrasion, Contusion, Laceration Nose (Internal): Present: Normal Inspection, No Active Bleeding. No: Rhinorrhea , Septal Hematoma, Epistaxis Neck: Present: Normal Range of Motion, Lymphadenopathy (+lt. anterior cervical) . No: Meningeal Signs, MIDLINE TENDERNESS, Paraspinal Tenderness, Trachea Midline Respiratory/Chest: Present: Clear to Auscultation, Good Air Exchange. No: Respiratory Distress, Accessory Muscle Use, Wheezes, Decreased Breath Sounds, Retracting, Rhonchi, Tachypneic Cardiovascular: Present: Regular Rate and Rhythm, Normal S1, S2. No: Murmurs Abdomen: No: Tenderness, Distention, Peritoneal Signs Back: Present: Normal Inspection Upper Extremity: Present: Normal Inspection. No: Cyanosis, Edema Lower Extremity: Present: Normal Inspection. No: Edema Neurological: Present: GCS=15, CN II-XII Intact, Speech Normal, Motor Func Grossly Intact, Gait Normal, Memory Normal Skin: Present: Warm, Dry, Normal Color. No: Rashes Psychiatric: Present: Alert, Oriented x 3, Normal Insight, Normal Concentration Medical Decision Making ED Course and Treatment: 08/05/17 15:45 -Discharge home with augmentin, tylenol, stay hydrated, bed rest, follow up with your own pmd and ENT within 2 days, return to the ER for any new or worsening signs or symptoms. - PA / GROUP HOME COUNSELOR / Resident Statement MD/DO has reviewed & agrees with the documentation as recorded. Disposition/Present on Arrival - Present on Arrival Any Indicators Present on Arrival: No History of DVT/PE: No History of Uncontrolled Diabetes: No Urinary Catheter: No History of Decub. Ulcer: No History Surgical Site Infection Following: None - Disposition Have Diagnosis and Disposition been Completed?: Yes Diagnosis: Pharyngitis Disposition: HOME/ ROUTINE Disposition Time: 15:46 Patient Plan: Discharge Condition: GOOD Additional Instructions: -Discharge home with augmentin, tylenol, stay hydrated, bed rest, follow up with your own pmd and ENT within 2 days, return to the ER for any new or worsening signs or symptoms. Prescriptions: Acetaminophen [Tylenol] 2 cap PO QID PRN #30 capsule PRN Reason: Other Amoxicillin/Clavulanate [Augmentin 875 MG-125 MG] 1 tab PO BID #20 tab Referrals: Shaik Martinez MD [Primary Care Provider] - Follow up with primary Kwabena Catherine DO [Doctor Osteopathy] - Follow up with primary Forms: WORK NOTE
[2017-08-05 15:53] VITALS: BP 124/71; PULSE 93; RESP 18
== END 2017-08-05 15:54 | disposition home or self-care (01) ==
LOC: ED 15:01
DX: J02.9 Acute pharyngitis, unspecified (principal)

== ENCOUNTER 2017-10-05 15:12 | Emergency (ER) | payer OTHER ==
[2017-10-05 15:36] VITALS: BMI 30.2
[2017-10-05 15:38] VITALS: TEMP 98.4
--- NOTE | 2017-10-05 16:10 | ED PDOC ---
Arrival/HPI - General Chief Complaint: Finger,Hand,&Wrist Time Seen by Provider: 10/05/17 15:45 Historian: Patient - History of Present Illness Narrative History of Present Illness (Text): 10/05/17 15:56 Patient is a 22 year old female whose past medical history includes appendectomy , who presents to the emergency department complaining of right hand pain. Patient reports that approximately 1-2 hours ago she had a heavy box fall on the back of her right hand. She notes being able to move her wrist, but finds closing her hand difficult secondary to pain. Patient denies any allergies to medications, and hasn't taken any medication for her pain. Patient denies fevers, chills, back pain, neck pain, headache, dizziness, or any other complaint. Time/Duration: 1-3 hours Symptom Onset: Sudden Symptom Course: Unchanged Context: Home Past Medical History - Provider Review Nursing Documentation Reviewed: Yes - Past History Past History: No Previous - Infectious Disease Hx of Infectious Diseases: None - Tetanus Immunization Tetanus Immunization: Unknown - Cardiac Hx Cardiac Disorders: No - Pulmonary Hx Respiratory Disorders: No - Neurological Hx Neurological Disorder: No - HEENT Hx HEENT Disorder: No - Renal Hx Renal Disorder: No - Endocrine/Metabolic Hx Endocrine Disorders: No - Hematological/Oncological Hx Blood Disorders: No - Integumentary Hx Dermatological Disorder: Yes - Musculoskeletal/Rheumatological Hx Musculoskeletal Disorders: No - Gastrointestinal Hx Gastrointestinal Disorders: No - Genitourinary/Gynecological Hx Genitourinary Disorders: No - Psychiatric Hx Psychophysiologic Disorder: No Hx Substance Use: No - Surgical History Hx Appendectomy: Yes - Anesthesia Hx Anesthesia: No Hx Anesthesia Reactions: No Hx Malignant Hyperthermia: No Family/Social History - Physician Review Nursing Documentation Reviewed: Yes Family/Social History: No Known Family HX Smoking Status: Never Smoked Hx Alcohol Use: No Hx Substance Use: No Allergies/Home Meds Allergies/Adverse Reactions: Allergies No Known Allergies Allergy (Verified 10/05/17 15:36) Review of Systems - Physician Review All systems were reviewed & negative as marked: Yes - Review of Systems Constitutional: absent: Fevers Neurological: absent: Headache, Dizziness Physical Exam - Physical Exam Narrative Physical Exam (Text): 10/05/17 16:10 Constitutional: No acute distress. Head: Normocephalic. Atraumatic. Eyes: PERRL. ENT: Moist mucous membranes. Neck: Supple. Cardiovascular: Regular rate. Chest: No tenderness. Respiratory: Clear to auscultation bilaterally. GI: Soft. Nontender. Nondistended. Back: No CVA tenderness. Musculoskeletal: Swelling and erythema to 4th and 5th MCP. Ecchymosis to 2nd joint of PIP. FROM. Skin: No rash. Neurologic: Alert, no focal deficit. Vital Signs Reviewed: Yes Vital Signs Temp Pulse Resp BP Pulse Ox 10/05/17 15:37 98.4 F 86 16 115/70 98 Temperature: Afebrile Blood Pressure: Normal Pulse: Regular Respiratory Rate: Normal Mental Status: Positive for: Alert and Oriented X 3 Medical Decision Making ED Course and Treatment: 10/05/17 16:12 Impression: Patient is a 22 year old female who is complaining of right hand pain secondary to an object falling on it. Differential Diagnosis included but are not limited to: Plan: -- Toradol IM -- Right hand X-ray -- Reassess and disposition Prior Visits: Notes and results from previous visits were reviewed. Progress Notes: 10/05/17 17:16 PROCEDURE: Right Hand Radiographs. HISTORY:box fell on hand COMPARISON: None. FINDINGS: BONES: No acute fracture or destructive bony lesion identified. JOINTS: Normal. No osteoarthritic changes. SOFT TISSUES: Normal. OTHER FINDINGS: None. IMPRESSION: Unremarkable right hand radiographs. Patient discharged, f/u PMD/Ortho, return to Emergency department for worsening pain, fever, or any other problem. 10/05/17 17:19 - RAD Interpretation Radiology Orders: 10/05/17 15:56 HAND RIGHT 3 VIEWS [RAD] Stat - Medication Orders Current Medication Orders: Discontinued Medications Ketorolac Tromethamine (Toradol) 60 mg IM STAT STA Stop: 10/05/17 15:57 Last Admin: 10/05/17 16:24 Dose: 60 mg MAR Pain Assessment Document 10/05/17 16:24 SF (Rec: 10/05/17 16:24 SF [facility] [id number]) Pain Reassessment Is this a pain reassessment? Yes Sleep Is patient sleeping during reassessment? No Presence of Pain Presence of Pain Yes IM Administration Charges Document 10/05/17 16:24 SF (Rec: 10/05/17 16:24 SF [facility] [id number]) Injection Site MAR Injection Site Left Deltoid Charges for Administration # of IM Administrations 1 - Scribe Statement The provider has reviewed the documentation as recorded by the Scribe Edmond Coronado Provider Scribe Attestation: All medical record entries made by the Scribe were at my direction and personally dictated by me. I have reviewed the chart and agree that the record accurately reflects my personal performance of the history, physical exam, medical decision making, and the department course for this patient. I have also personally directed, reviewed, and agree with the discharge instructions and disposition. Disposition/Present on Arrival - Present on Arrival Any Indicators Present on Arrival: No History of DVT/PE: No History of Uncontrolled Diabetes: No Urinary Catheter: No History of Decub. Ulcer: No History Surgical Site Infection Following: None - Disposition Have Diagnosis and Disposition been Completed?: Yes Diagnosis: Hand injury Disposition: HOME/ ROUTINE Disposition Time: 17:17 Patient Plan: Discharge Patient Problems: Current Active Problems Problem Status Onset Hand injury Acute Condition: STABLE Discharge Instructions (ExitCare): Common Finger Injuries Prescriptions: Ibuprofen [Motrin] 600 mg PO Q6 #25 tab Referrals: Anthony Holt DO [Staff Provider] - Follow up with primary Forms: [employer] (Luxembourgish)
--- NOTE | 2017-10-05 17:13 | RAD ---
PROCEDURE: Right Hand Radiographs. HISTORY: box fell on hand COMPARISON: None. FINDINGS: BONES: No acute fracture or destructive bony lesion identified. JOINTS: Normal. No osteoarthritic changes. SOFT TISSUES: Normal. OTHER FINDINGS: None. IMPRESSION: Unremarkable right hand radiographs.
[2017-10-05 17:59] VITALS: BP 119/87; PULSE 82; RESP 17; O2SAT 99
== END 2017-10-05 17:57 | disposition home or self-care (01) ==
LOC: ED 15:12
DX: S69.91XA Unspecified injury of right wrist, hand and finger(s), initial encounter (principal); W22.8XXA Striking against or struck by other objects, initial encounter; Y92.9 Unspecified place or not applicable
CPT/HCPCS: 73130; 96372; 99284; J1885